=== PATIENT | male | born 1990 | race Caucasian/White ===

== ENCOUNTER 2017-08-22 13:25 | Emergency (ER) | payer BC ==
[2017-08-22] MEDS ORDERED: Sodium Chloride 0.9% 10 ML Syringe FLUSH PRN (13:47)
--- NOTE | 2017-08-22 14:12 | CR ---
Clinical history: 26-year-old male emergency department with chest pain. Interpretation: Negative exam. Internal monitoring engineer leads. Normal cardiac silhouette and pulmonary vascular pattern on this upright AP portable chest. No alveol ar edema or pleural effusions. No lung mass, hilar lymphadenopathy or focal lobar pneumonia. No atelectasis/collapse. No pneumothorax or free subdiaphragmatic air.
[2017-08-22 14:29] LABS: CHLORIDE,CL 99 mmol/L (101-111); SODIUM,NA 135 mmol/L (135-145)
[2017-08-22] MEDS ORDERED: Aspirin 81 MG Tab.Chew PO ONE (14:48)
--- NOTE | 2017-08-22 17:13 | EDM.PDOC ---
Scribed by Yoli Vaughan 08/22/17 0894 for Susannah Gonzalez NP ED HPI GENERAL MEDICAL PROBLEM - General Chief Complaint: Chest Pain Stated Complaint: CHEST PAIN LEFT ARM HURTING [id number] Time Seen by Provider: 08/22/17 13:58 Source of Information: Reports: Patient, RN, RN Notes Reviewed History Limitations: Reports: No Limitations - History of Present Illness INITIAL COMMENTS - FREE TEXT/NARRATIVE: Patient had influenza on Thursday with vomiting. He also had aches and pains. Yesterday he had chest pain, back pain, and left arm. He has a dry cough. Rates pain in back 8 and chest 6. Pain radiates to back of head yesterday. No sore throat. Onset: Gradual Duration: Constant Location: Reports: Chest Quality: Reports: Ache Severity: Moderate Improves with: Reports: None Worsens with: Reports: None Associated Symptoms: Reports: No Other Symptoms Right Upper Chest Pain Score (Numeric/FACES): 7 - Related Data Allergies Allergy/AdvReac Type Severity Reaction Status Date / Time No Known Allergies Allergy Verified 08/22/17 13:45 Home Meds: Home Meds . [No Known Home Meds] 08/22/17 [History] Past Medical History - Past Health History Medical/Surgical History: Denies Medical/Surgical History - History Comment History Comment: No flu vaccine. Social & Family History - Tobacco Use Smoking Status *Q: Light Tobacco Smoker Years of Tobacco use: 2 Packs/Tins Daily: 0.1 - Caffeine Use Caffeine Use: Reports: Coffee, Soda - Alcohol Use Days Per Week of Alcohol Use: 7 Number of Drinks Per Day: 2 Total Drinks Per Week: 14 - Recreational Drug Use Recreational Drug Use: No ED ROS GENERAL - Review of Systems Review Of Systems: ROS reveals no pertinent complaints other than HPI. ED EXAM, GENERAL - Physical Exam Exam: See Below Exam Limited By: No Limitations General Appearance: Alert, WD/WN, No Apparent Distress Eye Exam: Bilateral Eye: Normal Inspection Ears: Normal External Exam, Normal Canal, Hearing Grossly Normal, Normal TMs Nose: Normal Inspection, Normal Mucosa, No Blood Throat/Mouth: Normal Inspection, Normal Lips, Normal Teeth, Normal Gums, Normal Oropharynx, Normal Voice, No Airway Compromise Head: Atraumatic, Normocephalic Neck: Normal Inspection, Supple, Non-Tender, Full Range of Motion Respiratory/Chest: No Respiratory Distress, Lungs Clear, Normal Breath Sounds, No Accessory Muscle Use, Chest Non-Tender EKG INTERPRETATION EKG Date: 08/22/17 Time: 13:41 Rhythm: NSR Rate (Beats/Min): 74 EKG Interpretation Comments: Mild ST elevation, possible early repolarization, ?pericarditis Course - Vital Signs Last Recorded V/S: Last Vital Signs Temp 99.2 F 08/22/17 15:09 Pulse 102 H 08/22/17 15:09 Resp 16 08/22/17 15:09 BP 119/64 08/22/17 15:09 Pulse Ox 100 08/22/17 15:09 - Orders/Labs/Meds Orders: Active Orders 24 hr Category Date Time Status EKG Documentation Completion [RC] STAT Care 08/22/17 13:47 Active Peripheral IV Care [RC] . DIRECTED Care 08/22/17 13:48 Active Peripheral IV Insertion Adult [OM.PC] Stat Oth 08/22/17 13:47 Ordered Labs: Laboratory Tests 08/22/17 08/22/17 08/22/17 Range/Units 13:55 13:55 13:55 WBC 12.9 H (5.0-10.0) 10^3/uL RBC 5.03 (4.6-6.2) 10^6/uL Hgb 15.1 (14.0-18.0) g/dL Hct 43.9 (40.0-54.0) % MCV 87.3 (80-100) fL MCH 30.0 (27.0-34.0) pg MCHC 34.4 (33.0-35.0) g/dL Plt Count 183 (150-450) 10^3/uL Neut % (Auto) 73.4 (42.2-75.2) % Lymph % (Auto) 11.5 L (20.5-50.1) % Kimble % (Auto) 14.5 H (2-8) % Eos % (Auto) 0.5 L (1.0-3.0) % Baso % (Auto) 0.1 (0.0-1.0) % PT 11.6 (9.0-12.0) SEC INR 1.2 (0.9-1.2) Sodium 135 (135-145) mmol/L Potassium 3.7 (3.6-5.0) mmol/L Chloride 99 L (101-111) mmol/L Carbon Dioxide 29.0 (21.0-31.0) mmol/L Anion Gap 10.7 BUN 13 (7-18) mg/dL Creatinine 0.8 (0.6-1.3) mg/dL Est Cr Clr Drug Dosing 145.75 mL/min Estimated GFR (MDRD) > 60 BUN/Creatinine Ratio 16.25 Glucose 131 H (74-105) mg/dL Calcium 8.7 (8.4-10.2) mg/dl Total Bilirubin 0.9 (0.2-1.0) mg/dL AST 34 (10-42) IU/L ALT 24 (10-60) IU/L Alkaline Phosphatase 45 (42-121) IU/L Troponin I 2.57 H* (0.00-0.02) ng/ml Total Protein 7.0 (6.7-8.2) g/dl Albumin 3.9 (3.2-5.5) g/dl Globulin 3.1 Albumin/Globulin Ratio 1.26 Meds: Medications Discontinued Medications Generic Name Dose Route Start Last Admin Trade Name Freq PRN Reason Stop Dose Admin Aspirin 324 mg 08/22/17 14:48 08/22/17 14:53 Aspirin PO 08/22/17 14:49 324 mg ONETIME ONE Administration Sodium Chloride 10 ml 08/22/17 13:47 08/22/17 14:53 Saline Flush FLUSH 10 ml ASDIRECTED PRN Administration Keep Vein Open - Radiology Interpretation Free Text/Narrative:: Chest x-ray: Normal cardiac silhouette and pulmonary vascular pattern on this upright AP portable chest. No alveolar edema or pleural effusions. No lung mass , hilar lymphadenopathy or focal lobar pneumonia. No atelectasis/collapse. No pneumothorax or free subdiaphragmatic air. - Re-Assessments/Exams Free Text/Narrative Re-Assessment/Exam: 08/22/17 17:09 EKG was discussed with [facility] staff. [facility] physician states that it is a possibility that this could be pericarditis, or possibly early repolarization. 1446 Discussed the patient case with Dr. Disla who was willing to accept the patient at this time. 1516 [address]iscuss[address] pt case with Dr. Rivera, Cardiology at [facility]. She states the patient could possibly have had a viral illness that may have developed a myocarditis. She states she will be happy to evaluate the patient. Departure - Departure Time of Disposition: 15:10 Disposition: DC/Tfer to Acute Hospital 02 Reason for Transfer *Q: Other Condition: Fair Clinical Impression: Acute coronary syndrome, Elevated troponin Referrals: PCP,None [Primary Care Provider] - Forms: ED Department Discharge, Interfacility Transfer [facility] - My Orders Last 24 Hours: My Active Orders 08/22/17 13:47 EKG Documentation Completion [RC] STAT Peripheral IV Insertion Adult [OM.PC] Stat 08/22/17 13:48 Peripheral IV Care [RC] . DIRECTED - Assessment/Plan Last 24 Hours: My Active Orders 08/22/17 13:47 EKG Documentation Completion [RC] STAT Peripheral IV Insertion Adult [OM.PC] Stat 08/22/17 13:48 Peripheral IV Care [RC] . DIRECTED I have read and agree with the documentation that has been completed regarding this visit. By signing this record, I attest that the documentation was completed in my physical presence and is an accurate record of the encounter.
--- NOTE | 2017-08-24 12:11 | EKG ---
08/22/2017 - SEAN PINEDA E - FINDINGS: A 12-lead EKG shows normal sinus rhythm with heart rate of 74. No acute ST elevation or ST depression noted on this 12-lead EKG except for nonspecific ST-T wave changes noted on leads V2 and V3 and also on lateral leads. Recommend to repeat the EKG. [facility] /[id number]
== END 2017-08-22 15:20 ==
LOC: DL.ED 13:25
DX: I24.9 Acute ischemic heart disease, unspecified (principal); R79.89 Other specified abnormal findings of blood chemistry; F17.210 Nicotine dependence, cigarettes, uncomplicated
CPT/HCPCS: 36415; 71045; 80053; 84484; 85025; 85610; 87804; 93005; 99285; A9270; J7050